=== PATIENT | male | born 1965 | race Caucasian/White ===

== ENCOUNTER 2018-01-17 12:46 | Emergency (ER) | payer MEDICARE, MEDICAID ==
[~2018-01-17] VITALS: Ht 177.8 cm; Wt 70.3 kg
[~2018-01-17 12:46] MED LIST: ABILIFY10 MG PO; ADULT LOW DOSE81 MG PO; ADVAIR HFA115 MCG/21 INH; BUSPIRONE HCL10 MG PO; BUSPIRONE HCL5 GM MC; CELEBREX 200 M200 M1 PO; HYDROCODON-ACE1 EAC7; LIPITOR10 MG PO; NEXIUM40 MG PO; SYMBICORT160 MCG/4. INH; TRAZODONE HCL100 MG PO; VENTOLIN HFA 1818 GM INH; ZOLOFT25 MG PO
[2018-01-17] MEDS ORDERED: ADVAIR HFA 230M12 GM INH (13:00)
[2018-01-17] MEDS ORDERED: ZOLOFT50 MG PO (13:01)
[2018-01-17] MEDS ORDERED: FLEXERIL PO (13:02)
[2018-01-17 13:06] LABS: ABSOLUTE BASOPHILS 0.1 thou/uL (0.0-0.2); ABSOLUTE EOSINOPHILS 0.1 thou/uL (0.0-0.7); ABSOLUTE LYMPHOCYTES 3.7 thou/uL (0.8-5.3); ABSOLUTE MONOCYTES 0.6 thou/uL (0.0-1.2); ABSOLUTE NEUTROPHILS 6.9 thou/uL (1.6-8.1); BASOPHILS 0.7 %; EOSINOPHILS 1.2 %; HEMATOCRIT 52.4 % (42.0-52.0); HEMOGLOBIN 17.8 gm/dL (14.0-18.0); LYMPHOCYTES 32.1 %; MCH 29.6 pg (26.0-34.0); MONOCYTES 5.1 %; MPV 7.5 fl. (7.2-11.1); NUCLEATED RBCS 0 /100WBC; PLATELET COUNT* 363 thou/uL (150-400); POLYS 60.9 %; RBC 6.02 mil/uL (4.50-6.00); RDW-CV 14.4 % (10.5-14.5); WBC 11.4 thou/uL (4.0-11.0)
[2018-01-17 13:14] LABS: ANION GAP 7 mmol/L (7-16); APTT 27.4 Seconds (25.0-31.3); BUN 16 mg/dL (7-18); CALCIUM 9.3 mg/dL (8.5-10.1); CHLORIDE 101 mmol/L (98-107); CO2 27 mmol/L (21-32); CREATININE 0.9 mg/dL (0.6-1.3); GLUCOSE 103 mg/dL (70-99); POTASSIUM 4.4 mmol/L (3.5-5.1); SODIUM 135 mmol/L (136-145)
[2018-01-17 13:25] LABS: ALKALINE PHOSPHATASE 88 U/L (46-116); NT-PRO BRAIN NAT PEPTIDE 14 pg/mL (<300); SGOT 19 U/L (15-37); SGPT 28 U/L (30-65); TOTAL BILIRUBIN 0.4 mg/dL (<0.1-1.0); TOTAL PROTEIN 7.6 g/dL (6.4-8.2); TROPONIN-I LEVEL <0.06 ng/mL (<0.06)
[2018-01-17 14:39] VITALS: BP 111/70
--- NOTE | 2018-01-18 15:03 | EKG ---
[place] [address] ELECTROCARDIOGRAM REPORT Name: SAPPHIRE FOSTER Room: [facility]#: [id number] Admission: 01/17/18 Attend Phys: Discharge: 01/17/18 Date of : 69 Report #: [id number] THIS REPORT FOR: //name// [facility] ED Test Date: 2018-01-17 Test Time: 12:49:55 Pat Name: SAPPHIRE FOSTER Department: Room: Gender: M General Manager: Shakeel HERNANDEZ : 1965 Requested By: Deric Jones Order Number: [id number] MD: Chris Hirsch Measurements Intervals [place] Rate: 76 P: 102 TX: 156 QRS: 141 QRSD: 126 T: -38 QT: 411 QTc: 463 Interpretive Statements Atrial-paced complexes pac with aberrancy left ventricular hypertrophy left axis Compared to ECG 01/08/2017 08:45:46 Sinus bradycardia no longer present Electronically Signed On 01-18-2018 15:03:18 CDT by Chris Hirsch [email or web address] <ELECTRONICALLY SIGNED> By: Chris Hirsch MD, [facility] 01/18/18 1503 1249 1249 Chris Hirsch MD, [facility] /EPI
== END 2018-01-17 14:39 | disposition home or self-care (01) ==
LOC: M.ERS 12:46
PROVIDERS: Family Medicine
DX: R53.1 Weakness (principal); J44.9 Chronic obstructive pulmonary disease, unspecified; F41.9 Anxiety disorder, unspecified; F32.9 Major depressive disorder, single episode, unspecified; F17.210 Nicotine dependence, cigarettes, uncomplicated

== ENCOUNTER 2018-04-03 15:09 | Emergency (ER) | payer MEDICARE, MEDICAID ==
[~2018-04-03] VITALS: Ht 175.3 cm; Wt 64.9 kg
[~2018-04-03 15:09] MED LIST changes: +ADVAIR HFA 230M12 GM INH; +FLEXERIL PO; +ZOLOFT50 MG PO
[2018-04-03] MEDS ORDERED: ALEVE220 MG PO (15:22)
[2018-04-03] MEDS ORDERED: VENTOLIN HFA 1818 GM INH (15:22)
[2018-04-03] MEDS ORDERED: MULTIVITAMINS1 EAC2 PO (15:23)
[2018-04-03 15:53] LABS: ABSOLUTE BASOPHILS 0.1 thou/uL (0.0-0.2); ABSOLUTE EOSINOPHILS 0.2 thou/uL (0.0-0.7); ABSOLUTE LYMPHOCYTES 2.4 thou/uL (0.8-5.3); ABSOLUTE MONOCYTES 0.6 thou/uL (0.0-1.2); ABSOLUTE NEUTROPHILS 6.6 thou/uL (1.6-8.1); BASOPHILS 0.8 %; EOSINOPHILS 2.1 %; HEMATOCRIT 41.8 % (42.0-52.0); HEMOGLOBIN 14.1 gm/dL (14.0-18.0); LYMPHOCYTES 23.9 %; MCH 29.9 pg (26.0-34.0); MCHC 33.7 g/dL (28.0-37.0); MCV 88.7 fL (80.0-100.0); MONOCYTES 6.1 %; MPV 7.2 fl. (7.2-11.1); NUCLEATED RBCS 0 /100WBC; PLATELET COUNT* 281 thou/uL (150-400); POLYS 67.1 %; RBC 4.71 mil/uL (4.50-6.00); RDW-CV 14.7 % (10.5-14.5); WBC 9.9 thou/uL (4.0-11.0)
[2018-04-03 16:08] LABS: ALBUMIN 3.7 g/dL (3.4-5.0); ALKALINE PHOSPHATASE 78 U/L (46-116); ANION GAP 3 mmol/L (7-16); BUN 17 mg/dL (7-18); CALCIUM 8.4 mg/dL (8.5-10.1); CHLORIDE 105 mmol/L (98-107); CO2 28 mmol/L (21-32); CREATININE 0.8 mg/dL (0.6-1.3); GLUCOSE 97 mg/dL (70-99); LIPASE 334 U/L (73-393); POTASSIUM 4.1 mmol/L (3.5-5.1); SGOT 12 U/L (15-37); SGPT 17 U/L (30-65); SODIUM 136 mmol/L (136-145); TOTAL BILIRUBIN 0.2 mg/dL (<0.1-1.0); TOTAL PROTEIN 6.6 g/dL (6.4-8.2); TROPONIN-I LEVEL <0.06 ng/mL (<0.06)
[2018-04-03 16:39] VITALS: BP 116/83
--- NOTE | 2018-04-04 13:59 | EKG ---
[place] [address] ELECTROCARDIOGRAM REPORT Name: SAPPHIRE FOSTER Room: [facility]#: [id number] Admission: 04/03/18 Attend Phys: Discharge: 04/03/18 Date of : 69 Report #: [id number] THIS REPORT FOR: //name// [facility] ED Test Date: 2018-04-03 Test Time: 15:45:52 Pat Name: SAPPHIRE FOSTER Department: Room: Gender: M Director On Air: GHADA : 1965 Requested By: Carisa Perla Order Number: [id number] MD: Patrick Bermeo Measurements Intervals [place] Rate: 66 P: [place]: 146 QRS: -49 QRSD: 95 T: 41 QT: 396 QTc: 415 Interpretive Statements Atrial-paced rhythm LAD, consider left anterior fascicular block Compared to ECG 01/17/2018 12:49:55 Atrial premature complex(es) no longer present Left ventricular hypertrophy no longer present Electronically Signed On 04-04-2018 13:59:06 CDT by Patrick Bermeo [email or web address] <ELECTRONICALLY SIGNED> By: Elenita Bermeo MD, [facility] 04/04/18 1359 1545 1545 F. Patrick Bermeo MD, [facility] /EPI
== END 2018-04-03 16:40 | disposition home or self-care (01) ==
LOC: M.ERS 15:09
PROVIDERS: Nurse Practitioner Family
DX: S20.212A Contusion of left front wall of thorax, initial encounter (principal); F41.9 Anxiety disorder, unspecified; R42 Dizziness and giddiness; J44.9 Chronic obstructive pulmonary disease, unspecified; F17.210 Nicotine dependence, cigarettes, uncomplicated; W19.XXXA Unspecified fall, initial encounter; Y93.89 Activity, other specified; Y92.89 Other specified places as the place of occurrence of the external cause; Y99.8 Other external cause status

== ENCOUNTER 2018-04-16 21:59 | Emergency (ER) | payer MEDICARE, MEDICAID ==
[~2018-04-16] VITALS: Ht 177.8 cm; Wt 67.1 kg
[~2018-04-16 21:59] MED LIST changes: +ALEVE220 MG PO; +MULTIVITAMINS1 EAC2 PO
[2018-04-16 22:03] VITALS: BP 106/73
[2018-04-16] MEDS ORDERED: ABILIFY10 MG PO (22:07)
[2018-04-16] MEDS ORDERED: NYSTATIN100000 UNI SW&SWALLOW (22:08)
== END 2018-04-16 22:13 | disposition home or self-care (01) ==
LOC: M.ERS 21:59
DX: J02.9 Acute pharyngitis, unspecified (principal); J44.9 Chronic obstructive pulmonary disease, unspecified; F32.9 Major depressive disorder, single episode, unspecified; F41.9 Anxiety disorder, unspecified; F17.210 Nicotine dependence, cigarettes, uncomplicated

== ENCOUNTER 2018-05-31 13:32 | Emergency (ER) | payer MEDICARE, MEDICAID ==
[~2018-05-31] VITALS: Ht 175.3 cm; Wt 58.1 kg
[~2018-05-31 13:32] MED LIST changes: +NYSTATIN100000 UNI SW&SWALLOW
[2018-05-31] MEDS ORDERED: ADVAIR HFA 230M12 GM INH (13:48)
[2018-05-31] MEDS ORDERED: BUSPIRONE HCL10 MG PO (13:48)
[2018-05-31] MEDS ORDERED: NEXIUM40 MG PO (13:48)
[2018-05-31] MEDS ORDERED: NORCO 5-325 TA1 EACH PO (15:52)
[2018-05-31] MEDS ORDERED: IBUPROFEN 600600 M1 PO (15:52)
[2018-05-31 16:07] VITALS: BP 127/83
== END 2018-05-31 16:08 | disposition home or self-care (01) ==
LOC: M.ERS 13:32
DX: S22.41XA Multiple fractures of ribs, right side, initial encounter for closed fracture (principal); M25.511 Pain in right shoulder; J44.9 Chronic obstructive pulmonary disease, unspecified; F41.9 Anxiety disorder, unspecified; F32.9 Major depressive disorder, single episode, unspecified; F17.210 Nicotine dependence, cigarettes, uncomplicated; W17.81XA Fall down embankment (hill), initial encounter; Y93.89 Activity, other specified; Y92.89 Other specified places as the place of occurrence of the external cause; Y99.8 Other external cause status

== ENCOUNTER 2018-09-30 20:28 | Observation (INO) | payer OTHER, MEDICAID ==
[~2018-09-30] VITALS: Ht 167.6 cm; Wt 59.9 kg
[~2018-09-30 20:28] MED LIST changes: +IBUPROFEN 600600 M1 PO; -MULTIVITAMINS1 EAC2 PO; +NORCO 5-325 TA1 EACH PO; +ONE DAILY COMP1 EAC1 PO
[2018-09-30 20:34] VITALS: BP 120/77
[2018-09-30 21:07] LABS: ABSOLUTE EOSINOPHILS 0.3 thou/uL (0.0-0.7); ABSOLUTE LYMPHOCYTES 3.3 thou/uL (0.8-5.3); ABSOLUTE MONOCYTES 0.7 thou/uL (0.0-1.2); ABSOLUTE NEUTROPHILS 5.9 thou/uL (1.6-8.1); BASOPHILS 0.2 %; EOSINOPHILS 3.3 %; HEMATOCRIT 41.1 % (42.0-52.0); LYMPHOCYTES 32.5 %; MCH 29.5 pg (26.0-34.0); MCV 86.8 fL (80.0-100.0); MONOCYTES 6.5 %; MPV 6.9 fl. (7.2-11.1); NUCLEATED RBCS 0 /100WBC; PLATELET COUNT* 310 thou/uL (150-400); POLYS 57.5 %; RBC 4.74 mil/uL (4.50-6.00); RDW-CV 14.2 % (10.5-14.5); WBC 10.3 thou/uL (4.0-11.0)
[2018-09-30 21:28] LABS: ANION GAP 9 mmol/L (7-16); BUN 22 mg/dL (7-18); CALCIUM 8.5 mg/dL (8.5-10.1); CHLORIDE 106 mmol/L (98-107); CO2 27 mmol/L (21-32); CREATININE 0.8 mg/dL (0.6-1.3); GLUCOSE 93 mg/dL (70-99); SODIUM 142 mmol/L (136-145); TROPONIN-I LEVEL <0.06 ng/mL (<0.06)
[2018-09-30 21:29] LABS: ALBUMIN 3.2 g/dL (3.4-5.0); ALKALINE PHOSPHATASE 92 U/L (46-116); LIPASE 360 U/L (73-393); NT-PRO BRAIN NAT PEPTIDE 32 pg/mL (<300); SGOT 20 U/L (15-37); SGPT 28 U/L (30-65); TOTAL BILIRUBIN 0.2 mg/dL (<0.1-1.0); TOTAL PROTEIN 6.3 g/dL (6.4-8.2)
[2018-09-30 23:15] VITALS: BP 105/77
[2018-09-30 23:23] VITALS: BP 120/81
[2018-09-30] MEDS ORDERED: FLEXERIL PO (23:53)
--- NOTE | 2018-10-01 03:50 | NUR ---
ASSUMED CARE OF PT AT 2315. PT IS ALERT AND ORIENTED. VSS. PERRLA. NO COMPLAINTS OF PAIN. PT IS IN SINUS RYTHM ON THE TELEMETRY. PT IS RESTING COMFORTABLY IN BED. RESPIRATIONS ARE EVEN AND NONLABORED. WILL CONTINUE TO MONITOR PT.
[2018-10-01 04:00] VITALS: BP 114/72
[2018-10-01 09:00] VITALS: BP 96/65
[2018-10-01] MEDS ORDERED: LIPITOR 20 MG T20 M1 PO (09:45)
--- NOTE | 2018-10-01 10:13 | EKG ---
[place] [address] ELECTROCARDIOGRAM REPORT Name: SAPPHIRE FOSTER Room: [address]R.#: [id number] Admission: 09/30/18 Attend Phys: Vero Fitch MD Discharge: Date of : 69 Report #: [id number] THIS REPORT FOR: //name// [facility] ED Test Date: 2018-09-30 Test Time: 20:49:19 Pat Name: SAPPHIRE FOSTER Department: Room: [facility] Gender: Staffing Mgr: Shakeel WOO : 1965 Requested By: Ryan Bolivar Order Number: [id number] MD: Chris Hirsch Measurements Intervals [place] Rate: 66 P: 50 SD: 151 QRS: -62 QRSD: 97 T: 42 QT: 414 QTc: 434 Interpretive Statements Sinus rhythm LAD, consider left anterior fascicular block Compared to ECG 04/03/2018 15:45:52 Atrial-paced complex(es) or rhythm no longer present Electronically Signed On 10-01-2018 10:13:46 CDT by Chris Hirsch [email or web address] <ELECTRONICALLY SIGNED> By: Chris Hirsch MD, [facility] 10/01/18 1013 48 48 Chris Hirsch MD, [facility] /EPI
--- NOTE | 2018-10-01 10:53 | NUR ---
ASSUMED PT CARE AT 0700 PT IS ALERT AND ORIENTED X 4 PT DENIES PAIN OR SOA ON RA, PT IS UP AD ANGELI, PT HAS PACEMAKER, AWAITING CARDIOLOGY IF CLEARED PT CAN DISCHARGE, PT IS PROGRESSING TOWARDS GOALS, WILL CONTINUE TO MONITOR
--- NOTE | 2018-10-01 13:40 | NUR ---
Pt is A&O. Consult received regarding need for placement. CM spoke with Pt, Pt stated that he had recently moved out of his apartment because "no one told me that there was a ghost that also lives there." Pt stated that he will not return. Discussed LTC, CM informed that Pt would need to relinquish most of his income, Pt stated "I'm not doing that, I've had too many people trying to take my money." CM offered homeless nursing home options and Pt declined. Per Pt he does not have any family or friends that he could stay with, even though he mentioned having a fiance, per Pt "where she lives ain't right either." CM informed Pt that he will likely dc today and CM asked Pt where he plans to go, per Pt "I'm going back to [place]." CM informed Pt that we could provide a cab voucher, if he can provide and address. Updated nurse. Following.
[2018-10-01 15:24] VITALS: BP 96/65
--- NOTE | 2018-10-02 10:34 | CON ---
[address] [address] CONSULTATION Name: KRISTINSAPPHIRE Cinthya Room: [address] Ernestina Butler#: [id number] Admission: 09/30/18 Attend Phys: Vero Fitch MD Discharge: 10/01/18 Date of : 69 Report #: [id number] THIS REPORT FOR: //name// CC: Cain Fitch DATE OF SERVICE: 10/01/2018 HISTORY OF PRESENT ILLNESS: The patient is a 53-year-old single white male who I was asked to see in the hospital today after he had a lightheaded spell. The patient presented in 2016 after a syncopal spell. He was seen by my partner, Dr. Chacon. He is felt to have evidence of sick sinus syndrome. He underwent implantation of a permanent MRI-compatible dual chamber pacemaker in 2017. He apparently has had no further syncope. He actually just saw Dr. Chacon in the [facility]iology [facility] last February. Unfortunately, the patient is basically homeless at this time. He states he has been living in the streets and has not been getting much food other than what can find in dumpsters. Yesterday, the patient felt lightheaded. He called an ambulance. He does have occasional chest pain, although it is nonexertional. He has had no bleeding. He does get short of breath with exertion. He has had no leg swelling. PAST MEDICAL HISTORY: No surgical procedures. He has a history of psychosis and sees psychiatrist in the past. He is currently on no medications, although he is supposed to be taking Abilify. ALLERGIES: He has no known drug allergies. FAMILY HISTORY: Mother had congestive heart failure. SOCIAL HISTORY: He has been in the past, currently . He smokes cigarettes. He used to drink up to 20 beers a week. He does smoke marijuana. REVIEW OF SYSTEMS: He has had no history of stroke, asthma, peptic ulcer disease, liver disease, kidney disease, cancer, chronic skin condition. PHYSICAL EXAMINATION: GENERAL: Revealed a frail-appearing middle-aged male who was lying in bed, he appeared in no acute distress. VITAL SIGNS: He had a blood pressure of 120/70, pulse 60. He is afebrile. HEENT: He is anicteric. Conjunctivae pink. Mucous members moist. NECK: Veins nondistended. No carotid bruits. Neck supple. CHEST: Clear to auscultation. CARDIAC: Regular rate and rhythm. ABDOMEN: Soft. EXTREMITIES: Had no edema. Posterior tibial pulse 2+ [place] [address] CONSULTATION Name: SAPPHIRE FOSTER [address] [id number] Admission: 09/30/18 Attend Phys: Vero Fitch MD Discharge: 10/01/18 Date of : 69 Report #: [id number] SKIN: Warm, dry. NEUROLOGIC: Nonfocal. LYMPH: No adenopathy. MUSCULOSKELETAL: No joint effusion. LABORATORY DATA: His ECG showed what appeared to represent sinus rhythm with occasional paced beat, left axis deviation. His echocardiogram in 2017 showed an ejection fraction of 55%, aortic sclerosis. Workup yesterday, he had a chest x-ray that showed normal heart size and clear lung yates. Previous CT scan of the head in 01/2018 showed no acute abnormalities. LABORATORY DATA: Sodium 142, creatinine 0.8, albumin 3.2. Troponin 0.06. Previous TSH was 1.3. White blood cell count 10.3, hemoglobin 14.0. IMPRESSION AND RECOMMENDATIONS: 1. History of sick sinus syndrome. Normal dual chamber pacemaker function in the backup mode at 60 beats per minute. 2. Lightheadedness. Reason unclear. The patient does not appear to be dehydrated. 3. History of psychosis. The patient has been on medications. 4. Poor social structure. The patient is basically homeless at this time. 5. History of alcohol abuse. 6. Tobacco abuse. <ELECTRONICALLY SIGNED> By: Chris Hirsch MD, [facility] 10/02/18 1034 1146 0308Daelena Hirsch MD, [facility] /nt
== END 2018-10-01 16:26 | disposition home or self-care (01) ==
LOC: M.ERS 20:28 → M.TBA-ER 21:39 → M.2W 21:39
PROVIDERS: Emergency Medicine Emergency Medical Services; ADMIT Family Medicine
DX: R07.89 Other chest pain (principal); F32.9 Major depressive disorder, single episode, unspecified; F41.1 Generalized anxiety disorder; J44.9 Chronic obstructive pulmonary disease, unspecified; E44.1 Mild protein-calorie malnutrition; R42 Dizziness and giddiness; F17.210 Nicotine dependence, cigarettes, uncomplicated; Z86.69 Personal history of other diseases of the nervous system and sense organs; Z79.82 Long term (current) use of aspirin; Z86.79 Personal history of other diseases of the circulatory system